=== PATIENT | male | born 1955 | race African-American/Black ===

== ENCOUNTER 2024-01-21 08:04 | Outpatient (AMB) | payer OTHER, SELFPAY ==
--- NOTE | 2024-01-21 08:47 | A.OFFVIS_ITS ---
Intake Visit Reasons: BPH/ED/urinary frequency Intake Note: New Patient presents for initial visit for BPH, ED, and urinary frequency Urology Medications: tolterodine Blood Thinner: none PVR: 31ml's Instrument Assembly Supervisor Required: No Accompanied by: Spouse Allergies Penicillins Allergy (Verified 01/21/24 09:39) Unknown Medication List - Last Reconciled 01/21/24 by CHAPIN Hernandez- allopurinol 100 mg PO DAILY amlodipine 5 mg PO DAILY ammonium lactate 12% 1 appl topical DAILY cholecalciferol (vitamin D3) 25 mcg PO DAILY cpywfqg-rhx-tcnon-tenof alafen [phone] mg (Genvoya) 1 tab PO DAILY ferrous sulfate 325 mg PO DAILY furosemide 20 mg PO DAILY gabapentin 1,200 mg PO DAILY ibuprofen 400 mg PO .once daily lidocaine 5% 1 patch topical DAILY PRN mirabegron ER (Myrbetriq) 25 mg PO DAILY 30 days tadalafil (Cialis) 5 mg PO DAILY 90 days tadalafil (Cialis) 10 mg PO .PRN PRN 90 days HPI Comments Details: Darrel is a very pleasant 68-year-old male patient of Dr. Gonzales who was accompanied by his significant other at today's office visit. He has a past medical history of vitamin-D deficiency, sleep apnea, ocular hypertension, obesity, ED, gout, hypertension, and BPH. He presents to the office today as a new patient for erectile dysfunction as well as ongoing lower urinary tract symptoms he has been experiencing. He reports previously following up here many years ago with Dr. Rod however is unsure as to why he did not continue to follow-up. He [facility] recommendations were made for urology referral for further assessment evaluation. He reports noting increased episodes of urinary frequency as well as issues maintaining his erections. When asked he does report a longstanding history of recreational marijuana daily. He denies any previous trauma and or surgical history. He reports previously being on finasteride however this has been discontinued with [facility]. He also reports having tri aled Flomax and terazosin in the past at which time he did not find this helpful for his urinary frequency. He reports being on tolterodine over the last 2-3 months in as also not found this helpful. LISA offered however deferred. We discussed obtaining labs and retroperitoneal ultrasound for further assessment evaluation. We discussed at length potential causes of lower urinary tract symptoms and erectile dysfunction as well as lifestyle modifications to assist with these urological issues. He otherwise denies incontinence, nocturia, hematuria, dysuria, foul smelling urine, changes to urinary stream, flank pain, fever, and or chills. In office urinalysis results reviewed with the patient today. Microscopic hematuria noted. We discussed potential causes of microscopic hematuria as well as further workup. PVR 31 mL. He otherwise offers no other issues or concerns at this time [facility]LY [facility], [facility] Medical History (Updated 01/21/24 @ 09:23 by RODERICK Hernandez) Vitamin D deficiency Sleep apnea Rheumatic tricuspid insufficiency Refraction disorder Pure hyperglyceridemia Personal history of colon polyps, unspecified Ocular hypertension Obstructive sleep apnea (adult) (pediatric) Obesity Male erectile dysfunction, unspecified Hyperglycemia, unspecified Gout, unspecified Essential (primary) hypertension Benign prostatic hyperplasia without lower urinary tract symptoms Abnormal kidney function Review of Systems Eyes Reports as per HPI ENT Reports no additional complaints Card Reports as per HPI Resp Reports as per HPI GI Reports no additional complaints Reports as per HPI Musc Reports no additional complaints Neuro Reports no additional complaints Psych Reports no additional complaints Endo Reports no additional complaints Aleksey/Lymph Reports no additional complaints Aller/Immun Reports no additional complaints Physical Exam Const General: cooperative, healthy appearing, comfortable, no acute distress, well developed, alert and awake Nutritional Appearance: overweight Orientation/consciousness: patient oriented x3 Limitations: ambulation with cane HEENT Head: Yes normal to inspection, Yes normocephalic and Yes atraumatic Ears: hearing grossly normal bilaterally Eyes General: appearance normal, both eyes and all related structures Neck Neck: Yes normal visual inspection and Yes trachea midline Chest Chest palpation & inspection: normal inspection of the chest Resp Effort & Inspection: normal respiratory effort and able to speak in complete sentences Cardio Rate: regular rate GI Inspection: Yes normal to inspection General: Yes no CVA tenderness Back/Spine/Pelvis Back: no CVA tenderness Skin General skin exam: no rashes or lesions noted Neuro General: patient oriented x3 Extrem General: Yes normal to inspection Psych Appearance: grossly normal and well kempt Mental Status: mental status grossly normal Speech and movement: Normal speech and movement present and Clear speech present Affect: normal affect Attitude: cooperative Thought process: Normal thought process present Thought content: Normal thought content present Insight: Fair insight present (Psych) Judgement: Fair judgement present (Psych) Office Procedures Post Void Residual Post Residual Void Post Void Residual (PVR): 31 [id number] Void Residual by ultrasound Results AMB Urinalysis, Automated UA Leukoctes 0 Bri/uL Last Edit by Listiki ErinnAktivito on 01/21/24 09:27 UA Nitrite Last Edit by CafeMomjohn Plasenciabrandon on 01/21/24 09:27 UA Urobilinogen 0.2 mg/dL Last Edit by [email or web address] on 01/21/24 09:27 UA Protein 0 mg/dL Last Edit by [email or web address] on 01/21/24 09:27 UA pH 6.0 Last Edit by Listiki Erinnbrandon on 01/21/24 09:27 UA Blood 10 Conrad/uL Last Edit by Honey on 01/21/24 09:27 UA Specific [place] 1.015 Last Edit by [email or web address] on 01/21/24 09:27 UA Ketone Negative Last Edit by [email or web address] on 01/21/24 09:27 UA Bilirubin 0 mg/dL Last Edit by [email or web address] on 01/21/24 09:27 UA Glucose 0 mg/dL Last Edit by [email or web address] on 01/21/24 09:27 Results Reviewed Results Reviewed: Laboratory Last Values Urine pH (Auto) 6.0 01/21/24 09:23 Specific [place] (Auto) 1.015 01/21/24 09:23 Urine Protein (Auto) 0 mg/dL 01/21/24 09:23 Glucose (UA)(Auto) 0 mg/dL 01/21/24 09:23 Urine Ketones (Auto) Negative 01/21/24 09:23 Urine Blood (Auto) 10 Conrad/uL 01/21/24 09:23 Urine Bilirubin (Auto) 0 mg/dL 01/21/24 09:23 Urine Urobilinogen (Auto) 0.2 mg/dL 01/21/24 09:23 Leukocyte Esterase (Auto) 0 Bri/uL 01/21/24 09:23 Assessment & Plan Assessment & Plan (1) Microscopic hematuria: Code(s): R31.29 - Other microscopic hematuria Category: Medical (2) Marijuana smoker: Code(s): F12.90 - Cannabis use, unspecified, uncomplicated Category: Medical (3) Male erectile dysfunction, unspecified: Code(s): N52.9 - Male erectile dysfunction, unspecified Category: Medical (4) Urinary frequency: Code(s): R35.0 - Frequency of micturition Category: Medical Plan In office urinalysis results reviewed with the patient today; as noted above; will send for urine cytology. PVR 31 mLs We discussed importance of limiting/quitting marijuana as well as weight loss in relation to urological issues as well as overall health and well-being. Stop tolterodine. Will obtain retroperitoneal ultrasound for further assessment evaluation. LISA offered however deferred. Will obtain PSA and testosterone for further assessment evaluation. We discussed lifestyle modifications to assist with ED as well as urinary frequency. Start Myrbetriq as discussed and prescribed. Start low-dose Cialis as discussed and prescribed. P.r.n. Cialis prescription provided. Discussed possible near future in office cystoscopy and or urodynamics for further assessment evaluation. Follow-up in 1-3 months with imaging and labs or sooner with any issues, concerns, and or questions. Orders: Orders AMB Urinalysis Automated Today Z13.9 - Encounter for screening, unspecified AMB Post Void Residual by ultrasound Today Z13.9 - Encounter for screening, unspecified Prostate Specific Antigen Today N52.9 - Male erectile dysfunction, unspecified, R31.29 - Other microscopic hematuria, R35.0 - Frequency of micturition Testosterone, Free/Total Today E11.69 - Type 2 diabetes mellitus with other specified complication, N52.1 - Erectile dysfunction due to diseases classified elsewhere US retroperitoneal comp Today F12.90 - Cannabis use, unspecified, uncomplicated, R31.29 - Other microscopic hematuria, R35.0 - Frequency of micturition Urine Cytology Today F12.90 - Cannabis use, unspecified, uncomplicated, R31.29 - Other microscopic hematuria Medications: New tadalafil (Cialis) CUATE N Group [facility] [address] [id number] 5 mg PO DAILY 90 tabs 0RF 90 days tadalafil (Cialis) Take 1-2 tablets 1 hour prior to sexual activity; not to exceed more than 3 times per week BIN PCN Group [facility] [address] [id number] 10 mg PO .PRN PRN 60 tabs 1RF sexual activity 90 days mirabegron ER (Myrbetriq) 25 mg PO DAILY 30 tabs 3RF 30 days N30.10 - Interstitial cystitis (chronic) without hematuria, N32.81 - Overactive bladder, R35.1 - Nocturia, R39.15 - Urgency of urination Patient Instructions: The patient had an opportunity to ask questions regarding the treatment plan. All questions were answered. Physical exam, labs, and imaging were discussed and reviewed in detail. As well as risks, benefits, and discussion of treatment choices. No major barriers to understanding were identified. The patient expressed understanding and agreement with the above treatment plan. The patient was made aware they should contact our office by phone for worsening of their current condition, the appearance of new symptoms, or with any questions or concerns. Compliance is encouraged with any medications and follow up testing that is ordered. It is a privilege to be allowed the opportunity to participate in? your urological care.? Again, if you have any questions or concerns If you have any questions or concerns please do not hesitate to contact me. The office is [phone]. This note is constructed using voice recognition software. While every effort has been made to ensure accuracy lot associate errors may have been included. Yours sincerely, RODERICK Hernandez Coding Level of Care Code New Pt Level 4 (38230) Diagnoses Microscopic hematuria R31.29 Marijuana smoker F12.90 Male erectile dysfunction, unspecified N52.9 Urinary frequency R35.0 CPT Codes Post Residual Void - PVR CPT Code: 70079-Oznr Void Residual by ultrasound ([id number])
== END 2024-01-21 11:17 | disposition home or self-care (01) ==
PROVIDERS: PCP Internal Medicine; Visit Provider Nurse Practitioner Family
DX: R31.29 Other microscopic hematuria (principal); F12.90 Cannabis use, unspecified, uncomplicated; N52.9 Male erectile dysfunction, unspecified; R35.0 Frequency of micturition; Z13.9 Encounter for screening, unspecified
CPT/HCPCS: 99204

== ENCOUNTER 2024-01-21 08:04 | Outpatient (REF) | payer OTHER, SELFPAY ==
[2024-01-21 16:44] LABS: Urine Cytology See Pathology rpt
== END 2024-01-21 08:05 | disposition home or self-care (01) ==
LOC: HO.LAB 08:04
PROVIDERS: PCP Internal Medicine; Visit Provider Nurse Practitioner Family
DX: F12.90 Cannabis use, unspecified, uncomplicated (principal); R31.29 Other microscopic hematuria; N52.9 Male erectile dysfunction, unspecified; R35.0 Frequency of micturition
CPT/HCPCS: 51798; 81003; 88112; 99202

== ENCOUNTER 2024-04-20 07:58 | Outpatient (REF) | payer OTHER, SELFPAY ==
--- NOTE | ~2024-04-20 | US_ITS ---
EXAMINATION: US RETROPERITONEAL COMPLETE (RENAL) CLINICAL INFORMATION: Microscopic hematuria. . COMPARISON: None available. TECHNIQUE: Real-time imaging of the kidneys and bladder. FINDINGS: RIGHT KIDNEY: 9 x 6 x 6 cm (SAG x AP x TRV). Normal echotexture. Normal renal cortical thickness. No hydronephrosis. No solid or cystic lesion. 2 mm hyperechoic structure at the corticomedullary junction/renal hilum. There is flow on color Doppler interrogation of the renal hilum. LEFT KIDNEY: 11 x 6 x 5 cm (SAG x AP x TRV). Normal echotexture. Normal renal cortical thickness. There is a 1.8 cm anechoic lesion in the upper pole without current Doppler interrogation or nodular component. No hydronephrosis. Normal flow on color Doppler interrogation of the renal hilum BLADDER: Fluid-filled. Bilateral ureteral jets are demonstrated. Prevoid bladder volume is 167 mL. Postvoid bladder volume is 28 mL. Prostate gland measures 4.8 cm in maximum dimension with a volume: 36 cc. US/US retroperitoneal comp IMPRESSION: Nonobstructing 2 mm calculus, right kidney. 1.8 cm cyst, left kidney. No hydronephrosis. 28 cc residual urine in a post void image.. Electronically signed by: Kaiden Nettles MD 04/20/2024 09:13 AM FLASH
[2024-04-20 09:49] LABS: Prostate Specific Antigen 1.29 ng/mL (<0.05-4.0)
[2024-04-28 01:32] LABS: Testosterone, Free 46.5 pg/mL (30.0-135.0); Testosterone, Total 372 ng/dL (250-1100)
== END 2024-04-20 07:59 | disposition home or self-care (01) ==
LOC: HO.US 07:58
PROVIDERS: Visit Provider Nurse Practitioner Family
DX: R31.29 Other microscopic hematuria (principal); E11.69 Type 2 diabetes mellitus with other specified complication; N52.1 Erectile dysfunction due to diseases classified elsewhere; R35.0 Frequency of micturition; N52.9 Male erectile dysfunction, unspecified; F12.90 Cannabis use, unspecified, uncomplicated; Z12.5 Encounter for screening for malignant neoplasm of prostate
CPT/HCPCS: 36415; 76770; 84153; 84402; 84403

== ENCOUNTER → 2024-04-20 08:17 | Outpatient (BNV) | payer OTHER, SELFPAY | PROVIDERS: Visit Provider Radiology Diagnostic Radiology | DX: R31.29 Other microscopic hematuria (principal); N20.0 Calculus of kidney; N28.1 Cyst of kidney, acquired | CPT/HCPCS: 76770 ==

== ENCOUNTER 2024-05-06 07:45 | Outpatient (AMB) | payer OTHER, SELFPAY ==
--- NOTE | 2024-05-06 07:46 | A.OFFVIS_ITS ---
Intake Visit Reasons: 3M follow up psa,test,and ultrasound(set) Intake Note: Patient presents today for tele visit follow up on: ultrasound and lab results Imaging Completed: 04/20/24 Testosterone: 372, Free Testosterone: 46.5 Urology Medications: myrbetriq Blood Thinner: none Bi Tri Operator Required: No Allergies Penicillins Allergy (Verified 05/06/24 07:51) Unknown Medication List - Last Reconciled 05/06/24 by RODERICK Hernandez allopurinol 100 mg PO DAILY amlodipine 5 mg PO DAILY ammonium lactate 12% 1 appl topical DAILY cholecalciferol (vitamin D3) 25 mcg PO DAILY aokdgyl-eeq-hkqiv-tenof alafen [id number] mg (Genvoya) 1 tab PO DAILY ferrous sulfate 325 mg PO DAILY furosemide 20 mg PO DAILY gabapentin 1,200 mg PO DAILY ibuprofen 400 mg PO .once daily lidocaine 5% 1 patch topical DAILY PRN mirabegron ER (Myrbetriq) 25 mg PO DAILY 30 days tadalafil (Cialis) 5 mg PO DAILY 90 days tadalafil (Cialis) 10 mg PO .PRN PRN 90 days HPI Comments Details: Darrel is a very pleasant 69-year-old male patient of Dr. Gonzales who was accompanied by his significant other at today's office visit. He has a past medical history of vitamin-D deficiency, sleep apnea, ocular hypertension, obesity, ED, gout, hypertension, and BPH. He is being followed up on today via video telehealth for his erectile dysfunction as well as lower urinary tract symptoms. In discussion with the patient today he reports to be doing and feeling well. He discusses feeling Myrbetriq has been helpful in episodes of urinary frequency he had been experiencing. Recent retroperitoneal ultrasound results were reviewed 05/12 bilateral kidneys are normal in echotexture. No hydronephrosis noted bilaterally. Nonobstructing 2 mm calculus in the right kidney. 1.8 cm left cyst. Pre void bladder volume measures 165 mL. Postvoid bladder volume is approximately 30 mL. Prostate volume of 36mls. Recent labs were reviewed with the patient today: PSA: 05/12 1.3 Testosterone: 05/12 372 Free testosterone: 05/12 46.5 In discussion with the patient regarding his erectile dysfunction and treatment with daily dosing of Cialis as well as on demand dosing prior to sexual activity he feels this has been somewhat helpful. We discussed further treatment options and risks and benefits of these treatment options however patient would like to continue with current therapy. He does report a longstanding history of recreational marijuana use. He denies any previous trauma and or surgical history. He reports previously being on finasteride however this has [facility]. He has previously trialed Flomax, terazosin, and tolterodine with no improvement in urinary frequency. We discussed at length potential causes of lower urinary tract symptoms and erectile dysfunction as well as lifestyle modifications to assist with these urological issues. He otherwise denies incontinence, nocturia, hematuria, dysuria, foul smelling urine, changes to urinary stream, flank pain, fever, and or chills. During last office visit urinalysis noted microscopic hematuria. We discussed again throughout today's visit further workup to include in office cystoscopy. However, patient declines at this time. Urine cytology 02/10 Negative for high-grade urothelial carcinoma. He otherwise offers no other issues or concerns at this time. [facility] Medical History Vitamin D deficiency Sleep apnea Rheumatic tricuspid insufficiency Refraction disorder Pure hyperglyceridemia Personal history of colon polyps, unspecified Ocular hypertension Obstructive sleep apnea (adult) (pediatric) Obesity Male erectile dysfunction, unspecified Hyperglycemia, unspecified Gout, unspecified Essential (primary) hypertension Benign prostatic hyperplasia without lower urinary tract symptoms Abnormal kidney function Review of Systems Eyes Reports as per HPI ENT Reports no additional complaints Card Reports as per HPI Resp Reports as per HPI GI Reports no additional complaints Reports as per HPI Musc Reports no additional complaints Neuro Reports no additional complaints Psych Reports no additional complaints Endo Reports no additional complaints Aleksey/Lymph Reports no additional complaints Aller/Immun Reports no additional complaints Physical Exam Const General: cooperative, healthy appearing, comfortable, no acute distress, well developed, alert and awake Orientation/consciousness: patient oriented x3 Resp Effort & Inspection: normal respiratory effort and able to speak in complete sentences Neuro General: patient oriented x3 Psych Appearance: grossly normal and well kempt Mental Status: mental status grossly normal Speech and movement: Clear speech present Affect: normal affect Attitude: cooperative Thought process: Normal thought process present Thought content: Normal thought content present Insight: Fair insight present (Psych) Judgement: Fair judgement present (Psych) Telehealth Telehealth Telehealth Platform: Telephone Location of provider rendering services: practice address Location of patient: address on file Patient Identification confirmed using: Name, : Yes Telehealth method: video Patient verbally consented to treatment: Yes Patient verbally consented to billing insurance company: Yes Patient informed of any privacy concerns related to visit: Yes Minutes spent on Phone/Video with Pt.: 15 Results Reviewed Results Reviewed: Date of Service: 04/20/24 Procedure(s): US retroperitoneal comp FINDINGS: RIGHT KIDNEY: 9 x 6 x 6 cm (SAG x AP x TRV). Normal echotexture. Normal renal cortical thickness. No hydronephrosis. No solid or cystic lesion. 2 mm hyperechoic structure at the corticomedullary junction/renal hilum. There is flow on color Doppler interrogation of the renal hilum. LEFT KIDNEY: 11 x 6 x 5 cm (SAG x AP x TRV). Normal echotexture. Normal renal cortical thickness. There is a 1.8 cm anechoic lesion in the upper pole without current Doppler interrogation or nodular component. No hydronephrosis. Normal flow on color Doppler interrogation of the renal hilum BLADDER: Fluid-filled. Bilateral ureteral jets are demonstrated. Prevoid bladder volume is 167 mL. Postvoid bladder volume is 28 mL. Prostate gland measures 4.8 cm in maximum dimension with a volume: 36 cc. IMPRESSION: Nonobstructing 2 mm calculus, right kidney. 1.8 cm cyst, left kidney. No hydronephrosis. 28 cc residual urine in a post void image.. Assessment & Plan Assessment & Plan (1) Marijuana smoker: Code(s): F12.90 - Cannabis use, unspecified, uncomplicated Category: Medical (2) Microscopic hematuria: Code(s): R31.29 - Other microscopic hematuria Category: Medical (3) Male erectile dysfunction, unspecified: Code(s): N52.9 - Male erectile dysfunction, unspecified Category: Medical (4) Urinary frequency: Code(s): R35.0 - Frequency of micturition Category: Medical (5) Nephrolithiasis: Code(s): N20.0 - Calculus of kidney Category: Medical (6) Renal cyst: Code(s): N28.1 - Cyst of kidney, acquired Category: Medical Plan Recent PSA, and testosterone results reviewed with the patient today; as noted above. He currently denies any bothersome urinary issues or concerns. He reports be happy with current voiding parameters. We discussed at length the importance of lifestyle modifications to assist with ED as well as overall health and well-being. We discussed further treatment options of ED and risks and benefits of these treatment options. He will continue with daily dosing of tadalafil as well as p.r.n. dosing; refills provided. Continue Myrbetriq. With the discussed further workup for microscopic hematuria however patient continues to decline; we did discuss potential delay for treatment. Discussed, educated, and stressed the importance of adequate hydration relation to nephrolithiasis. Follow-up in 6 months with PVR; or sooner with any issues, concerns, and or questions. Patient Instructions: The patient had an opportunity to ask questions regarding the treatment plan. All questions were answered. Physical exam, labs, and imaging were discussed and reviewed in detail. As well as risks, benefits, and discussion of treatment choices. No major barriers to understanding were identified. The patient expressed understanding and agreement with the above treatment plan. The patient was made aware they should contact our office by phone for worsening of their current condition, the appearance of new symptoms, or with any questions or concerns. Compliance is encouraged with any medications and follow up testing that is ordered. It is a privilege to be allowed the opportunity to participate in? your urological care.? Again, if you have any questions or concerns If you have any questions or concerns please do not hesitate to contact me. The office is [phone]. This note is constructed using voice recognition software. While every effort has been made to ensure accuracy railroad signal and switch operator errors may have been included. Yours sincerely, RODERICK Hernandez Coding Level of Care Code Tele Est Pt Level 3 (44878) Diagnoses Marijuana smoker F12.90 Microscopic hematuria R31.29 Male erectile dysfunction, unspecified N52.9 Urinary frequency R35.0 Nephrolithiasis N20.0 Renal cyst N28.1
== END 2024-05-06 08:38 | disposition home or self-care (01) ==
LOC: HO.HUSH 07:45
PROVIDERS: Referring Provider Internal Medicine; Visit Provider Nurse Practitioner Family
DX: R31.29 Other microscopic hematuria (principal); N52.9 Male erectile dysfunction, unspecified; R35.0 Frequency of micturition; F12.90 Cannabis use, unspecified, uncomplicated; N20.0 Calculus of kidney; N28.1 Cyst of kidney, acquired
CPT/HCPCS: 99213

== ENCOUNTER → 2024-05-06 07:45 | Outpatient (BNVA) | payer OTHER, SELFPAY | PROVIDERS: Visit Provider Nurse Practitioner Family ==

== ENCOUNTER 2024-11-02 08:57 | Outpatient (AMB) | payer OTHER, SELFPAY ==
--- NOTE | 2024-11-02 09:17 | MHC.OFFVIS ---
Intake Visit Reasons: 6 month/ PVR Intake Note: patient presents today for: 6mo/PVR urology medications: tadalafil, mirabegron, allopurionol blood thinners: none today's PVR: 127mls Child And Adolescent Psychologist Required: No Accompanied by: Self / Same As Patient Allergies Penicillins Allergy (Verified 11/02/24 11:02) Unknown Medication List - Last Reconciled 11/02/24 by ASHLYN HernandezP- allopurinol 100 mg PO DAILY amlodipine 5 mg PO DAILY ammonium lactate 12% 1 appl topical DAILY cholecalciferol (vitamin D3) 25 mcg PO DAILY tfcekza-veb-vmhqw-tenof alafen [phone] mg (Genvoya) 1 tab PO DAILY ferrous sulfate 325 mg PO DAILY furosemide 20 mg PO DAILY gabapentin 1,200 mg PO DAILY ibuprofen 400 mg PO .once daily lidocaine 5% 1 patch topical DAILY PRN mirabegron ER (Myrbetriq) 25 mg PO DAILY 30 days tadalafil (Cialis) 5 mg PO DAILY 90 days tadalafil (Cialis) 10 mg PO .PRN PRN 90 days HPI Comments Details: Darrel is a very pleasant 69-year-old male patient of Dr. Gonzales. He has a past medical history of vitamin-D deficiency, sleep apnea, ocular hypertension, obesity, ED, gout, hypertension, and BPH. He presents to the office today for follow-up of his lower urinary tract symptoms and erectile dysfunction. In discussion with the patient today he reports he has had no improvement in his erections with daily dosing of tadalafil with p.r.n. dosing. He has previously trialed Viagra without improvement. We did discussed further treatment options to include penile injection therapy. However [facility]. He continues to experience issues with nocturia. He does feel Myrbetriq has been helpful in episodes of urinary frequency and urgency he had been experiencing however now feels his most bothersome issue is nocturia up to 3 times per night. Previous workup has included a retroperitoneal ultrasound 05/12 bilateral kidneys are normal in echotexture. No hydronephrosis noted bilaterally. Nonobstructing 2 mm calculus in the right kidney. 1.8 cm left cyst. Pre void bladder volume measures 165 mL. Postvoid bladder volume is approximately 30 mL. Prostate volume of 36mls. Labs are as follows: PSA: 05/12 1.3 Testosterone: 05/12 372 Free testosterone: 05/12 46.5 He does report being compliant with his CPAP machine for sleep apnea. We did discussed correlation of compliance with reports of nocturia. We did discuss importance of weight loss in relation to lower urinary tract symptoms, ED, as well as overall health and well-being. He reports he is following up with his primary care provider through the [place] to discuss GLP 1 medications for weight loss. He does report a longstanding history of recreational marijuana use. He denies any previous trauma and or surgical history. He reports previously being on finasteride however this has been discontinued with his PCP through the [place]. He has previously trialed Flomax, terazosin, and tolterodine with no improvement in lower urinary tract symptoms. We discussed at length potential causes of lower urinary tract symptoms and erectile dysfunction as well as lifestyle modifications to assist with these urological issues. He otherwise denies incontinence, hematuria, dysuria, foul smelling urine, changes to urinary stream, flank pain, fever, and or chills. Patient with a previous history of microscopic hematuria however no microscopic hematuria noted on UA today. Urine cytology 02/10 Negative for high-grade urothelial carcinoma. He otherwise offers no other issues or concerns at this time. [facility] Medical History Vitamin D deficiency Sleep apnea Rheumatic tricuspid insufficiency Refraction disorder Pure hyperglyceridemia Personal history of colon polyps, unspecified Ocular hypertension Obstructive sleep apnea (adult) (pediatric) Obesity Male erectile dysfunction, unspecified Hyperglycemia, unspecified Gout, unspecified Essential (primary) hypertension Benign prostatic hyperplasia without lower urinary tract symptoms Abnormal kidney function Review of Systems Eyes Reports as per HPI ENT Reports no additional complaints Card Reports as per HPI Resp Reports as per HPI GI Reports no additional complaints Reports as per HPI Musc Reports no additional complaints Neuro Reports no additional complaints Psych Reports no additional complaints Endo Reports no additional complaints Aleksey/Lymph Reports no additional complaints Aller/Immun Reports no additional complaints Physical Exam Const General: cooperative, healthy appearing, comfortable, no acute distress, well developed, alert and awake Nutritional Appearance: overweight Orientation/consciousness: patient oriented x3 Limitations: ambulation with cane HEENT Head: Yes normal to inspection, Yes normocephalic and Yes atraumatic Ears: hearing grossly normal bilaterally Eyes General: appearance normal, both eyes and all related structures Neck Neck: Yes normal visual inspection and Yes trachea midline Chest Chest palpation & inspection: normal inspection of the chest Resp Effort & Inspection: normal respiratory effort and able to speak in complete sentences Cardio Rate: regular rate GI Inspection: Yes normal to inspection General: Yes no CVA tenderness Back/Spine/Pelvis Back: no CVA tenderness Skin General skin exam: no rashes or lesions noted Neuro General: patient oriented x3 Extrem General: Yes normal to inspection Psych Appearance: grossly normal and well kempt Mental Status: mental status grossly normal Speech and movement: Clear speech present Affect: normal affect Attitude: cooperative Thought process: Normal thought process present Thought content: Normal thought content present Insight: Fair insight present (Psych) Judgement: Fair judgement present (Psych) Assessment & Plan Assessment & Plan (1) Nephrolithiasis: Code(s): N20.0 - Calculus of kidney Category: Medical (2) Renal cyst: Code(s): N28.1 - Cyst of kidney, acquired Category: Medical (3) Microscopic hematuria: Code(s): R31.29 - Other microscopic hematuria Category: Medical (4) Urinary frequency: Code(s): R35.0 - Frequency of micturition Category: Medical (5) Male erectile dysfunction, unspecified: Code(s): N52.9 - Male erectile dysfunction, unspecified Category: Medical (6) Nocturia: Code(s): R35.1 - Nocturia Category: Medical Plan In office urinalysis results with the patient today; as noted above. PVR 127 mL. Continue Myrbetriq as discussed and prescribed. We did discussed further treatment options of erectile dysfunction as well as lower urinary tract symptoms patient is experiencing; we discussed risks and benefits of these treatment options. All questions were answered. We did discussed the importance of lifestyle modifications to assist with nocturia as well as ED. All questions were answered. We discussed attempting to sit when voiding to relax pelvis and assist with incomplete bladder emptying. Will schedule for next available in office cystoscopy for further assessment evaluation. Follow-up per doctor's orders; or sooner with any issues, concerns, and or questions. Orders: Orders Prostate Specific Antigen 6 Months N52.9 - Male erectile dysfunction, unspecified, R35.0 - Frequency of micturition, R35.1 - Nocturia Testosterone, Free/Total 6 Months N52.9 - Male erectile dysfunction, unspecified, R35.0 - Frequency of micturition, R35.1 - Nocturia Hemoglobin A1c 6 Months E11.9 - Type 2 diabetes mellitus without complications Medications: Discontinued tadalafil (Cialis) Take 1-2 tablets 1 hour prior to sexual activity; not to exceed more than 3 times per week B[facility] [address] [id number] Discontinued Reason: Doctor's Order 10 mg PO .PRN PRN 60 tabs 1RF sexual activity 90 days Patient Instructions: The patient had an opportunity to ask questions regarding the treatment plan. All questions were answered. Physical exam, labs, and imaging were discussed and reviewed in detail. As well as risks, benefits, and discussion of treatment choices. No major barriers to understanding were identified. The patient expressed understanding and agreement with the above treatment plan. The patient was made aware they should contact our office by phone for worsening of their current condition, the appearance of new symptoms, or with any questions or concerns. Compliance is encouraged with any medications and follow up testing that is ordered. It is a privilege to be allowed the opportunity to participate in? your urological care.? Again, if you have any questions or concerns If you have any questions or concerns please do not hesitate to contact me. The office is [phone]. This note is constructed using voice recognition software. While every effort has been made to ensure accuracy dining car steward errors may have been included. Yours sincerely, RODERICK Hernandez Coding Level of Care Code Est Pt Level 3 (05415) Complex EM visit Add On G2211 Diagnoses Nephrolithiasis N20.0 Renal cyst N28.1 Microscopic hematuria R31.29 Urinary frequency R35.0 Male erectile dysfunction, unspecified N52.9 Nocturia R35.1
== END 2024-11-02 10:06 | disposition home or self-care (01) ==
LOC: HO.HUSH 08:57
PROVIDERS: Visit Provider Nurse Practitioner Family
DX: N20.0 Calculus of kidney (principal); N28.1 Cyst of kidney, acquired; R31.29 Other microscopic hematuria; R35.0 Frequency of micturition; N52.9 Male erectile dysfunction, unspecified; R35.1 Nocturia; Z13.9 Encounter for screening, unspecified
CPT/HCPCS: 99213; G2211

== ENCOUNTER → 2024-11-02 08:57 | Outpatient (BNVA) | payer OTHER, SELFPAY | PROVIDERS: Visit Provider Nurse Practitioner Family | DX: N20.0 Calculus of kidney (principal); N28.1 Cyst of kidney, acquired; R31.29 Other microscopic hematuria; R35.0 Frequency of micturition; N52.9 Male erectile dysfunction, unspecified; R35.1 Nocturia | CPT/HCPCS: 51798; 81003; 99212 ==

== ENCOUNTER 2024-12-11 12:29 | Outpatient (REF) | payer OTHER, SELFPAY ==
[2024-12-11 15:01] LABS: Prostate Specific Antigen 1.82 ng/mL (<0.05-4.0)
[2024-12-19 21:48] LABS: Testosterone, Free 46.8 pg/mL (30.0-135.0)
== END 2024-12-11 12:30 | disposition home or self-care (01) ==
LOC: HO.LAB 12:29
PROVIDERS: Visit Provider Nurse Practitioner Family
DX: E11.9 Type 2 diabetes mellitus without complications (principal); N52.9 Male erectile dysfunction, unspecified; R35.0 Frequency of micturition; R35.1 Nocturia; Z12.5 Encounter for screening for malignant neoplasm of prostate
CPT/HCPCS: 36415; 83036; 84153; 84402; 84403

== ENCOUNTER 2024-12-22 10:05 | Outpatient (AMB) | payer OTHER, SELFPAY ==
--- NOTE | 2024-12-22 10:17 | MHC.OFFVIS ---
Intake Visit Reasons: cysto Intake Note: patient presents today for: CYSTOSCOPY FOR MICRO HEMATURIA urology medications: tadalafil, mirabegron, allopurionol blood thinners: none Labs done 12/11/24 : HbgA1c 4.5, PSA 1.82, Total Testosterone 446, Fr Testosterone 46.8 Last PVR: 127mls Cystoscopy lot# [id number] Exp: 07/28/27 [employer] Coach Driver Required: No Accompanied by: Self / Same As Patient Allergies Penicillins Allergy (Verified 12/22/24 10:18) Unknown HPI Comments Details: Darrel is a pleasant male. He is a patient of Dr. Gonzales. He is seen for the following urologic conditions - urinary urgency and frequency - erectile dysfunction Here for cystoscopy Cystoscopy shows grade 2 trabeculation with cellules and early developing small diverticula Recommend incision of prostate given prostate volume of 35 cc Prescription provided for Edex [facility] Will call if needs training for injections Lower urinary tract symptoms Has been on Myrbetriq for urgency frequency Prior bladder ultrasound showed effective emptying with prostate volume 35 cc PSA: 05/12 1.3 Testosterone: 05/12 372, 12/12 T 450 Free testosterone: 05/12 46.5 Erectile dysfunction Longstanding history recreational marijuana Testosterone normal Decreasing response to oral medications [facility] Medical History Vitamin D deficiency Sleep apnea Rheumatic tricuspid insufficiency Refraction disorder Pure hyperglyceridemia Personal history of colon polyps, unspecified Ocular hypertension Obstructive sleep apnea (adult) (pediatric) Obesity Male erectile dysfunction, unspecified Hyperglycemia, unspecified Gout, unspecified Essential (primary) hypertension Benign prostatic hyperplasia without lower urinary tract symptoms Abnormal kidney function Review of Systems Const Denies chills and Denies fever(s) Card Reports no additional complaints and Denies syncope Resp Denies cough GI Denies abdominal pain and Denies heartburn Reports as per HPI and Denies change in libido Neuro Denies syncope Psych Denies change in libido Endo Denies change in libido Physical Exam Const General: cooperative, healthy appearing, comfortable and no acute distress Orientation/consciousness: patient oriented x3 HEENT Face and sinus: Yes normal facial exam Mouth: moist mucous membranes Neck Neck: Yes normal visual inspection, Yes full ROM and Yes trachea midline Chest Chest palpation & inspection: normal inspection of the chest Resp Effort & Inspection: normal respiratory effort, able to speak in complete sentences and no respiratory distress GI Inspection: Yes normal to inspection Back/Spine/Pelvis Cervical Spine: normal cervical lordosis Thoracic/Lumbar Spine: thoracic and lumbar spine normal to inspection Skin General skin exam: no rashes or lesions noted Neuro General: patient oriented x3, gait normal, tone normal and moves all extremities Extrem General: Yes normal to inspection and Yes capillary refill normal Office Procedures Cystoscopy Consent Discussed risk and benefit or proposed procedure with the patient. Information consent for procedure given to the patient. Discussed technical aspects, risks, benefits and alternatives in full. Addressed all of the patient's questions and concerns regarding the procedure. The patient demonstrated knowledge and understanding. They wish to proceed with this procedure. Preparation The patient was prepped in the usual manner. A right of way worker was present and in the room. Genitalia was prepped with betadine solution in a sterile manner. Lidocaine Jelly 2% was placed into the urethra and 16Fr flexible Olympus cystoscope was inserted into the meatus after adequate lubrication. Procedure Cystoscopy performed using a disposable Urovue digital 16 [place] cystoscope. Meatus circumcised Urethra anterior and posterior urethra normal Prostatic Urethra tight bladder neck Bladder examination with retroflexion of cystoscope Bladder Orifices normal shape and position Bladder Capacity Normal Trabeculations grade 2 Cellule Formation yes Diverticulum Formation small Mucosal Erythema None Bladder Tumor None [id number] DISPOSABLE SCOPE URO-G FLEXIBLE SCOPE Procedure code (CPT) selection complete Office Meds lidocaine HCl 2 % mucosal jelly in applicator Performing Provider: Vance Rod MD Performing Location: [facility] Administered by: Jeanmarie Gipson LPN on 12/22/24 10:34 Dose Route Admin Location Dispensed Lot Number Expiration Date ND Resolute Professional 10 mL intra-urethral 10 mL nitrofurantoin monohydrate/macrocrystals 100 mg capsule Performing Provider: Vance Rod MD Performing Location: [facility] Administered by: Jeanmarie Gipson LPN on 12/22/24 10:34 Dose Route Admin Location Dispensed Lot Number Expiration Date ND Resolute Professional 100 mg PO 1 cap Results AMB Urinalysis, Automated UA Leukoctes 0 Bri/uL Last Edit by EAMON Forde on 12/22/24 10:27 UA Nitrite Negative Last Edit by EAMON Forde on 12/22/24 10:27 UA Urobilinogen 0.2 mg/dL Last Edit by Rufina Colon, CCMA on 12/22/24 10:27 UA Protein 0 mg/dL Last Edit by [facility] on 12/22/24 10:27 UA pH 6.0 Last Edit by Rufina Colon, CCMA on 12/22/24 10:27 UA Blood 0 Conrad/uL Last Edit by Rufina Colon, [facility] on 12/22/24 10:27 UA Specific [place] 1.010 Last Edit by Rufina Colon, CCMA on 12/22/24 10:27 UA Ketone Negative Last Edit by Rufina Colon, [facility] on 12/22/24 10:27 UA Bilirubin 0 mg/dL Last Edit by Rufina Colon, [facility] on 12/22/24 10:27 UA Glucose 0 mg/dL Last Edit by Rufina Colon, [facility] on 12/22/24 10:27 Results Reviewed Results Reviewed: Laboratory Last Values Urine pH (Auto) 6.0 12/22/24 10:26 Specific [place] (Auto) 1.010 12/22/24 10:26 Urine Protein (Auto) 0 mg/dL 12/22/24 10:26 Glucose (UA)(Auto) 0 mg/dL 12/22/24 10:26 Urine Ketones (Auto) Negative 12/22/24 10:26 Urine Blood (Auto) 0 Conrad/uL 12/22/24 10:26 Urine Nitrite (Auto) Negative 12/22/24 10:26 Urine Bilirubin (Auto) 0 mg/dL 12/22/24 10:26 Urine Urobilinogen (Auto) 0.2 mg/dL 12/22/24 10:26 Leukocyte Esterase (Auto) 0 Bri/uL 12/22/24 10:26 Assessment & Plan Assessment & Plan (1) Erectile dysfunction due to arterial insufficiency: Code(s): N52.01 - Erectile dysfunction due to arterial insufficiency Category: Medical Plan We discussed the nature of the decision and reasonable options for performing a prostate intervention. Interventions include TURP, GreenLight laser enucleation of the prostate, GreenLight laser ablation of the prostate, transurethral incision of the prostate, and I-Tend prostate procedure. Options such as medical therapy were discussed. The relative uncertainties and benefits related to each alternate procedure were adequately discussed. General surgical risks including, but not limited to, pain, bleeding, infection, myocardial infarction, pulmonary embolus, deep vein thrombosis and cerebrovascular accident which may result in further hospitalization were discussed. Full disclosure of the procedure as well as all major risks, benefits and complications were discussed including but not limited to damage to the urethra or bladder neck, recurrent BPH, retrograde ejaculation, bladder infection, urge, de gianluca frequency, incomplete emptying, dysuria, remote chance of erectile dysfunction, epididymitis, and meatal stenosis. The success rate of the procedure was discussed. Success of the procedure in the short-term does not necessarily guarantee that long-term success will be maintained. Suitable follow up will need to be maintained. The patient showed understanding of discussion. An opportunity was provided for questions to be answered and wishes to proceed with the following procedure. - plasma button prostate incision Orders: Orders AMB Cystoscopy Today N20.0 - Calculus of kidney, R31.29 - Other microscopic hematuria, R35.0 - Frequency of micturition, R35.1 - Nocturia Medications: New alprostadil (Edex) To be used for injections Mail to vet 1.25 mcg intra-cavernosal 3XW 30 days PRN 4 ea 3RF erectile dysfunction N52.01 - Erectile dysfunction due to arterial insufficiency alprostadil (Edex) To be used for injections Mail to vet 1.25 mcg intra-cavernosal 3XW PRN 4 ea 3RF erectile dysfunction 30 days N52.01 - Erectile dysfunction due to arterial insufficiency Patient Instructions: This note is constructed using voice recognition software. While every effort has been made to ensure accuracy bereavement counselor errors may have been included. Imaging studies, laboratory and physical exam results were discussed and reviewed in detail. No major barriers to patient understanding were identified. An opportunity to ask questions regarding the treatment plan was provided. All questions were answered. The patient expressed understanding and agreement with the above treatment plan. The patient is aware they should contact our office by phone for worsening of their current condition or the appearance of new urologic symptoms. Compliance is encouraged with any medications and followup testing that is ordered. It is a privilege to participate in the urologic care of your patient. If you have any questions or concerns regarding treatment for the above conditions, or other urologic issues, please do not hesitate to contact me. The office telephone contact is [phone]. Sincerely, Dr Vance Rod MD, [facility] - Urology Compassionate Specialist Care for the Genitourinary System Coding Level of Care Code Est Pt Level 4 (70151) Diagnoses Erectile dysfunction due to arterial insufficiency N52.01 CPT Codes Cystoscopy - CPT: [id number] ([id number])
== END 2024-12-22 10:59 | disposition home or self-care (01) ==
LOC: HO.HUSH 10:05
PROVIDERS: Visit Provider Urology
DX: N52.01 Erectile dysfunction due to arterial insufficiency (principal); R31.29 Other microscopic hematuria
CPT/HCPCS: 52000

== ENCOUNTER → 2024-12-22 10:05 | Outpatient (BNVA) | payer OTHER, SELFPAY | PROVIDERS: Visit Provider Urology | DX: R31.29 Other microscopic hematuria (principal); N20.0 Calculus of kidney; R35.0 Frequency of micturition; R35.1 Nocturia | CPT/HCPCS: 52000 ==